=== PATIENT | female | born 2000 | race Caucasian/White ===

== ENCOUNTER 2019-11-28 21:01 | Emergency (ER) | payer OTHER ==
[~2019-11-28] VITALS: Ht 157.5 cm; Wt 83.5 kg
[2019-11-28 21:22] VITALS: Ht 157.5 cm; Wt 83.5 kg
[2019-11-29 01:30] VITALS: BP 96/57
== END 2019-11-29 01:30 | disposition home or self-care (01) ==
LOC: ED 21:01
DX: J11.1 Influenza due to unidentified influenza virus with other respiratory manifestations (principal); N39.0 Urinary tract infection, site not specified
CPT/HCPCS: 87804; J1885; J7030